=== PATIENT | male | born 1955 | race Asian ===

== ENCOUNTER 2024-12-06 11:30 | Outpatient (RCR) | payer MEDICARE, BC, SELFPAY ==
[2024-12-06 11:45] VITALS: BP 144/81; PULSE 59; TEMP 36.1; O2SAT 99
[2024-12-06] MEDS: SODIUM CHLORIDE 0.9 % (FLUSH) 10 ML SYRINGE IVF (12:04)
[2024-12-06 12:29] LABS: Creatinine* 0.5 mg/dL (0.5-1.5); Estimated Glomerular Filt Rate 110 ml/min
== END 2025-06-04 23:59 | disposition home or self-care (01) ==
LOC: CCIC 11:30
PROVIDERS: Radiology Radiation Oncology; PCP Internal Medicine; Visit Provider Clinical Nurse Specialist
DX: C25.0 Malignant neoplasm of head of pancreas (principal)
CPT/HCPCS: 36415; 36591; 82565